=== PATIENT | male | born 1950 | race Caucasian/White ===

== ENCOUNTER → 2017-06-09 | Outpatient (CLI) | payer OTHER ==
[~2017-06-09] VITALS: Ht 180.3 cm; Wt 103.0 kg
[~2017-06-09] MED LIST: ASPIR 8181 MG PO; HYDROCODON-ACE1 EAC5 PO; NEXIUM40 MG PO; OMEGA-31000 M1 PO; PROBIOTIC1 EAC1 PO; WELCHOL 625 MG625 M1 PO; ZANAFLEX4 MG PO; ZETIA10 MG PO
--- NOTE | ~2017-06-09 | HPC ---
[facility] [address] [place] [address] PAIN MANAGEMENT CONSULTATION Name: AMANDA KELLY Room #: REG DANK Payan#: [id number] Admission: 06/09/17 Attend Phys: Yossi Hawkins DO Discharge: Date of : 46 Report #: [id number] THIS REPORT FOR: //name// CC: Steve Hawkins HISTORY OF PRESENT ILLNESS: The patient is a very pleasant 66-year-old gentleman, prior seen in the pain clinic about a year and a half ago in 12/2015, had a trigger point injection at that time, prior had been treated for cervical radicular symptoms and quite sometime ago back in 2013 was treated for lumbar radicular symptoms. He was somewhat lost to follow up, returns to pain clinic today. The patient presents to pain clinic noting recurrence of axial back and lumbar radicular pain. Denies specific antecedent trauma and overuse. Notes pain has been present for several weeks, has some subjective weakness and paresthesia in the right buttock and leg going down to the foot. He has tried anti-inflammatory medication (Aleve) nominal efficacy. He has continued with physical therapy. He rates pain of 5-6 on a VAS, seems to be worse at night. Denies any specific myelopathic symptoms. PHYSICAL EXAMINATION: Shows a 66-year-old gentleman, BMI is 31.7 kilograms per meter squared. Subjective pain score is 5-6 on a VAS. Blood pressure 166/87, pulse 74, respirations 16. Rises from chair using armrest, does have a markedly antalgic gait. Right lower extremity flexion strength is objectively diminished about 3/5, all else is about 4-5/5. Achilles reflex is absent on the right, 1/4 in the left. Patellar reflexes are generally symmetric at 1/4. DIAGNOSTIC STUDIES: There are no recent diagnostic studies available for evaluation. Prior lumbar spine from 2009 quite dated did note an annular tear at L2-L3 and facet joint changes throughout the lumbar spine and a right paracentral disk at L4-L5. Symptoms are compatible with a recurrence of this L4-L5 right-sided disk protrusion. ASSESSMENT: Symptomatic lumbar radiculopathy by clinical exam and history. RECOMMENDATIONS: 1. Continue [id number]-ztf-zbumzzu Aleve. 2. Epidural injection under fluoroscopy today, right of midline L5-S1. 3. Follow up in 3 weeks for reevaluation. Consider right L4-L5 transforaminal injection if indicated clinically at that time. Thank you for allowing me to participate in the patient's care. I will keep you abreast of his progress. PROCEDURE NOTE: Lumbar epidural injection under fluoroscopy. [address] [address] PAIN MANAGEMENT CONSULTATION Name: AMANDA KELLY Room #: REG DANK Payan#: [id number] Admission: 06/09/17 Attend Phys: Yossi Hawkins DO Discharge: Date of : 46 Report #: [id number] PROCEDURE: After both written and informed consent to include risk of spinal cord damage, increased pain, weakness and dural puncture, the patient was taken to the fluoroscopy suite, placed in the prone position. After sterile prep and drape, a skin wheal with lidocaine was raised. A 22-gauge epidural Tuohy needle was inserted in the midline at L5-S1 with good loss to resistance. Negative aspiration for cerebrospinal fluid or blood was noted. Then 1 mL of Omnipaque under biplanar fluoroscopy showed good spread within the epidural space. This was followed with 80 mg of triamcinolone plus 1 mL of 1.5% preservative-free Xylocaine, 0.5 mL Xylocaine was then injected to flush the needle; it was removed. The patient was monitored for an appropriate period of time and discharged in good and stable condition. <ELECTRONICALLY SIGNED> By: Yossi Hawkins DO 06/12/17 0943 [id number] Yossi Hawkins DO /nt
[2017-06-09 13:00] VITALS: BP 166/87
== END | disposition home or self-care (01) ==
LOC: PAIN 07:19
DX: M54.16 Radiculopathy, lumbar region (principal); Z68.31 Body mass index [BMI] 31.0-31.9, adult; Z79.899 Other long term (current) drug therapy; Z98.890 Other specified postprocedural states

== ENCOUNTER → 2017-08-24 | Outpatient (CLI) | payer OTHER ==
[~2017-08-24] VITALS: Ht 180.3 cm; Wt 99.8 kg
--- NOTE | ~2017-08-24 | HPC ---
[facility] [place] [address] PAIN MANAGEMENT CONSULTATION Name: AMANDA KELLY Room #: REG DANK Payan#: [id number] Admission: 08/24/17 Attend Phys: Yossi Hawkins DO Discharge: Date of : 46 Report #: [id number] THIS REPORT FOR: //name// CC: Steve Hawkins DATE OF SERVICE: 08/24/2017 The patient is a very pleasant 67-year-old gentleman, typically treated for lumbar radiculopathy, axial back pain, was given L5-S1 epidural injection on 06/09/2017 with near 100% improvement of his back and right radicular pain for 2 months. Pain has gradually begun to recur, but it is different. He has pain in the left buttock, does not radiate down the leg. No specific antecedent event caused this. He does note pain is exacerbated with leaning forward or standing. PHYSICAL EXAMINATION: Shows a pleasant 67-year-old gentleman. Vital signs are stable as noted in the EMR. Rises from chair using armrest. Gait is generally tandem, though he is very tender over the left SI with grossly positive left HUNG test, left Gaenslen test. Pelvic distraction exacerbates pain. Straight leg raise is negative. Lower extremity strength is preserved at this time. ASSESSMENT: 1. Symptomatic lumbar radiculopathy by clinical exam and history, symptoms relatively quiescent following single epidural injection. 2. Acute exacerbation of left sacroiliac mediated pain. RECOMMENDATION: Left SI joint injection under fluoroscopy today, refer to Physical Therapy for core strengthening. Follow up simply as needed. ASSESSMENT: Symptomatic left sacroiliac joint dysfunction. PROCEDURE: Left SI joint injection under fluoroscopy. PROCEDURE NOTE: After written informed consent was obtained, the patient was taken to fluoroscopy suite, placed in prone position. After sterile prep and drape, skin wheal was raised. A 22-gauge stylet needle was placed to contact the inferior aspect of the left SI joint. Negative aspiration was accomplished. 1 mL of Omnipaque was injected, which showed spread in the joints, followed with 40 mg triamcinolone plus 1 mL of 0.5% preservative-free bupivacaine. Needle was removed. The area was cleansed. Band-Aid applied. The patient monitored for an appropriate period of time, discharged in good and stable condition. <ELECTRONICALLY SIGNED> By: Yossi Hawkins DO 08/25/17 0715 [id number] Yossi Hawkins DO /nt
[2017-08-24 13:07] VITALS: BP 145/79
== END | disposition home or self-care (01) ==
LOC: PAIN 06-30 12:47
DX: M53.3 Sacrococcygeal disorders, not elsewhere classified (principal); G89.29 Other chronic pain; M54.16 Radiculopathy, lumbar region; Z98.890 Other specified postprocedural states; Z79.82 Long term (current) use of aspirin; Z79.899 Other long term (current) drug therapy